=== PATIENT | male | born 1990 | race Caucasian/White ===

== ENCOUNTER 2018-09-28 23:39 | Emergency (ER) | payer OTHER ==
[~2018-09-28] VITALS: Wt 172.4 kg
[~2018-09-28 23:39] MED LIST: ANAPROX DS550 MG PO; CLEOCIN150 MG PO; HYDROCODONE BIT1 T11 PO; Peridex 473 ML473 ML PO
[2018-09-29] MEDS ORDERED: ZITHROMAX250 MG PO (00:02)
== END 2018-09-29 00:29 | disposition home or self-care (01) ==
LOC: ED 23:39
DX: J03.90 Acute tonsillitis, unspecified (principal); K05.10 Chronic gingivitis, plaque induced; F17.200 Nicotine dependence, unspecified, uncomplicated; Z88.0 Allergy status to penicillin; Z79.2 Long term (current) use of antibiotics; Z79.899 Other long term (current) drug therapy

== ENCOUNTER 2019-01-06 22:28 | Emergency (ER) | payer OTHER ==
[~2019-01-06] VITALS: Ht 185.4 cm; Wt 146.1 kg
[~2019-01-06 22:28] MED LIST changes: +ZITHROMAX250 MG PO
== END 2019-01-06 23:31 | disposition home or self-care (01) ==
LOC: ED 22:28
DX: H10.9 Unspecified conjunctivitis (principal); Z88.0 Allergy status to penicillin

== ENCOUNTER 2019-01-19 09:59 | Emergency (ER) | payer OTHER ==
[~2019-01-19] VITALS: Ht 185.4 cm; Wt 151.0 kg
[2019-01-19 10:51] LABS: BASO # 0.1 10*3/uL (0.0-0.1); BASO % 0.6 % (0.0-1.0); EOS # 0.3 10*3/uL (0.0-0.4); EOS % 1.7 % (1.0-4.0); HEMOGLOBIN 18.2 g/dl (14.0-18.0); LYMPH # 1.5 10*3/uL (1.3-4.4); LYMPH % 8.8 % (27.0-41.0); MEAN CELL VOLUME 94.5 fl (80.0-94.0); MEAN CORPUSCULAR HGB 31.3 pg (27.0-31.0); MEAN CORPUSCULAR HGB CONC 33.1 g/dl (33.0-37.0); MEAN PLATELET VOLUME 9.5 fl (9.6-12.3); MONO # 1.1 10*3/uL (0.1-1.0); MONO % 6.2 % (3.0-9.0); NEUT # 14.4 10*3/uL (2.3-7.9); NEUT % 82.3 % (47.0-73.0); PLATELET COUNT AUTOMATED 268 10*3/uL (130-400); RED BLOOD COUNT 5.82 10*6/uL (4.50-5.90); RED CELL DISTRI WIDTH 12.9 % (0-14.5); WHITE BLOOD COUNT 17.4 10*3/uL (4.8-10.8)
[2019-01-19 11:07] LABS: ALKALINE PHOSPHATASE 76 U/L (45-117); BUN 15 mg/dl (7-24); CHLORIDE 108 mmol/L (98-107); CREATININE 0.95 mg/dL (0.70-1.30); LIPASE 113 U/L (73-393); POTASSIUM 4.2 mmol/L (3.5-5.1); SGOT/AST 20 IU/L (3-35); SGPT/ALT 42 U/L (12-78); SODIUM 136 mmol/L (136-145); TOTAL PROTEIN 8.4 gm/dL (6.4-8.2)
[2019-01-19 11:17] LABS: ACT PARTIAL THROMBO TIME 27.4 SECONDS (20.0-32.1)
[2019-01-19] MEDS ORDERED: ZOFRAN4 MG PO (13:44)
== END 2019-01-19 13:47 | disposition home or self-care (01) ==
LOC: ED 09:59
PROVIDERS: Emergency Medicine
DX: K52.9 Noninfective gastroenteritis and colitis, unspecified (principal); F17.200 Nicotine dependence, unspecified, uncomplicated; Z88.0 Allergy status to penicillin